=== PATIENT | male | born 1985 ===

== ENCOUNTER 2018-08-10 17:47 | Emergency (ER) | payer OTHER ==
[~2018-08-10 17:47] MED LIST: DOXY-179 PO
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
[2018-08-10 20:57] VITALS: BP 148/92
[2018-08-10] MEDS ORDERED: HYDR-385 PO (21:04)
[2018-08-10] MEDS ORDERED: AMOX-559 PO (21:04)
[2018-08-10] MEDS ORDERED: ACET/HYDROC 5/325MG TH ER ONLY 2 TAB/BOTTLE PO ONE (21:10)
[2018-08-10] MEDS ORDERED: AMOX/CLAV 875 MG TAB PO ONE (21:10)
[2018-08-14] MEDS ORDERED: IBUP-136 PO (09:56)
== END 2018-08-10 21:34 | disposition home or self-care (01) ==
LOC: ER 17:55
DX: S02.2XXB Fracture of nasal bones, initial encounter for open fracture (principal); S01.511A Laceration without foreign body of lip, initial encounter; S01.81XA Laceration without foreign body of other part of head, initial encounter; V18.0XXA Pedal cycle driver injured in noncollision transport accident in nontraffic accident, initial encounter; Y93.55 Activity, bike riding
CPT/HCPCS: 70450; 70486; 72125; 99284